=== PATIENT | female | born 1990 | race Caucasian/White ===

== ENCOUNTER 2018-10-20 15:00 | Inpatient (IN) | payer OTHER ==
[2018-10-20] MEDS ORDERED: TUBERCULIN PPD 5 TU/0.1ML SYRINGE (IN PATIENT USE ONLY) ID ONE ×2 (15:39→20:45)
[2018-10-20 15:59] VITALS: BMI 26.0
[2018-10-20] MEDS ORDERED: ELECTROLYTE-148 SOLN 1,000 ML IV SCH (16:00)
[2018-10-20] MEDS ORDERED: BUTORPHANOL TARTRATE 1 MG/ML VIAL ONE ×2 (16:45)
[2018-10-20] MEDS ORDERED: PROMETHAZINE HCL 25 MG/1 ML VIAL ONE (16:45)
[2018-10-20] MEDS ORDERED: PROMETHAZINE HCL 25 MG/1 ML VIAL IVPB ONE (16:50)
[2018-10-20] MEDS ORDERED: BUTORPHANOL TARTRATE 2 MG/ML VIAL IVPB ONE (16:50)
[2018-10-20 17:14] LABS: BASO % 0.4 % (0-2.0); EOS % 0.2 % (0-4.5); HEMATOCRIT 39.9 % (32.4-45.2); HEMOGLOBIN 13.8 GM/dL (10.7-15.3); LYMPH % 8.7 % (8-40); MCH 29.7 pg (25.7-33.7); MCHC 34.5 g/dl (32.0-36.0); MEAN CELL VOLUME 86.2 fl (80-96); MEAN PLT VOLUME 9.4 fl (7.5-11.1); MONO % 3.8 % (3.8-10.2); NEUT % 86.9 % (42.8-82.8); PLATELET COUNT 246 K/MM3 (134-434); RBC 4.63 M/mm3 (3.60-5.2); RDW 13.8 % (11.6-15.6); WHITE BLOOD COUNT 17.6 K/mm3 (4.0-10.0)
[2018-10-20 17:31] LABS: INR 0.86 (0.83-1.09); PROTHROMBIN TIME (PATIENT) 10.1 SEC (9.7-13.0)
[2018-10-20 17:33] LABS: ACTIVATED PTT 29.3 SECONDS (25.2-36.5)
[2018-10-20 17:39] LABS: ANION GAP 10 MMOL/L (8-16); BLOOD UREA NITROGEN 8 mg/dL (7-18); CALCIUM 8.8 mg/dL (8.5-10.1); CHLORIDE 104 mmol/L (98-107); CO2 22 mmol/L (21-32); CREATININE 0.4 mg/dL (0.55-1.3); GLUCOSE,RANDOM 68 mg/dL (74-106); POTASSIUM 3.7 mmol/L (3.5-5.1); SODIUM 136 mmol/L (136-145)
[2018-10-20] MEDS ORDERED: ELECTROLYTE-148 SOLN 1,000 ML IV ONE (19:30)
[2018-10-20] MEDS ORDERED: LIDO 2%/EPI 1:200000 PRESRVFRE (20 ML SDVIAL) ONE (19:44)
[2018-10-20] MEDS ORDERED: BUPIVACAINE HCL/PF 0.25% (2.5MG/ML) 10 ML VIAL ONE (19:44)
[2018-10-20] MEDS ORDERED: FENTANYL/BUPIVACAINE/NS/PF - PCEA - 50 ML DISP.SYRIN EP ONE (19:45)
[2018-10-20] MEDS ORDERED: NALOXONE HCL 0.4 MG/ML VIAL IVPUSH PRN (20:06)
[2018-10-20] MEDS ORDERED: FENTANYL/BUPIVACAINE/NS/PF - PCEA - 50 ML DISP.SYRIN EP SCH (20:15)
--- NOTE | 2018-10-20 21:49 | HP ---
Past Medical History - Primary Care Physician PCP:: Ralph Clarke - Admission Chief Complaint: 28yo P0 with at EGA 39w5d admitted with spontaneous labor since 1pm, and SROM at 6pm. History of Present Illness: Uncomplicated PNC Vaginal GBS negative. History Source: Patient, Medical Record Limitations to Obtaining History: No Limitations - Past Medical History PIANO PLAYER: No: Alzheimer's, CVA, Dementia, Migraine, Multiple Sclerosis, Peripheral Neuropathy, Parkinson's, Seizure, Syncope, TIA, Vertigo, Other Cardiovascular: No: AFIB, Aneurysm, Aortic Insufficiency, Aortic Stenosis, CAD, CHF, Deep Vein Thrombosis, HTN, Hyperlipdemia, [place], Mitral Insufficiency, Mitral Stenosis, Murmur, Pulmonary Hypertension, Other Pulmonary: No: Asthma, Bronchitis, Cancer, COPD, O2 Dependent, Pneumonia, Previously Intubated, Pulmonary Embolus, Pulmonary Fibrosis, Sleep Apnea, Other Gastrointestinal: No: Ascites, Cancer, Constipation, Crohn's Disease, Diverticulitis, Diverticulosis, Esophageal Varices, Gastritis, GERD, GI Bleed, Hemorrhoids, Hiatal Hernia, Inflamatory Bowel Disease, Irritable Bowel Disease, Pancreatitis, Peptic Ulcer Disease, Ulcerative Colitis, Other Hepatobiliary: No: Cirrhosis, Cholelithiasis, Cholecystitis, Choledocholithiasis , Hepatitis A, Hepatitis B, Hepatitis C, Other Renal/: No: Renal Failure, Renal Inusuff, BPH, Cancer, Hematuria, Hemodialysis , Neurogenic Bladder, Renal Calculi, UTI, Other Reproductive: No: Ectopic , Endometriosis, Fibroids, PID, Polycystic Ovary Syndrome, Postmenopausal, Other ...: 1 ...LMP: 01/09/18 ... Weeks Gestation by Dates: 39.5 ...EDC by Dates: 10/16/18 ...EDC by Sono: 10/22/18 Heme/Onc: No: Anemia, B12 Deficiency, Bleeding Disorder, Cancer, Current Chemotherapy, Current Radiation Therapy, Hemochromatosis, Hypercoaguable State, Myeloproliferative Synd, Sickle Cell Disease, Sickle Cell Trait, Thrombocytopenia, Other Infectious Disease: No: AIDS, C-Diff, Herpes Zoster, HIV, MRSA, STD's, Tuberculosis, VREF, Other Psych: No: Addictions, Anxiety, Bipolar, Depression, Panic, Psychosis, Schizophrenia, Other Musculoskeletal: No: Bursitis, Chronic low back pain, Hemiparesis, Hemiplegia, Osteoarthritis, Paraplegia, Other Rheumatology: No: Fibromyalgia, Gout, Lupus, Rheumatoid Arthritis, Sarcoidosis, Vasculitis, Other ENT: No: Allergic Rhinitis, Sinusitis, Other Endocrine: No: [place]'s Disease, Monique's Disease, Diabetes Insipidus, Diabetes Mellitus, Hyperparathyroidism, Hyperthyroidism, Hypothyroidism, Osteopenia, SIADH, Other Dermatology: No: Basal Cell, Cellulitis, Eczema, Melanoma, Psoriasis, Squamous Cell, Other - Past Surgical History Past Surgical History: Yes: None Hx Myomectomy: No Hx Transabdominal Cerclage: No - Smoking History Smoking history: Never smoked - Alcohol/Substance Use Hx Alcohol Use: No - Social History ADL: Independent Occupation: Retail History of Recent Travel: No Home Medications - Allergies Allergies/Adverse Reactions: Allergies Allergy/AdvReac Type Severity Reaction Status Date / Time No Known Allergies Allergy Verified 09/24/18 17:45 - Home Medications Home Medications: Ambulatory Orders Tablet 1 tab PO DAILY 09/24/18 Family Disease History - Family Disease History Family History: Unremarkable Review of Systems - Review of Systems Constitutional: reports: No Symptoms Eyes: reports: No Symptoms HENT: reports: No Symptoms Neck: reports: No Symptoms Cardiovascular: reports: No Symptoms Respiratory: reports: No Symptoms Gastrointestinal: reports: No Symptoms Genitourinary: reports: No Symptoms Breasts: reports: No Symptoms Reported Musculoskeletal: reports: No Symptoms Integumentary: reports: No Symptoms Neurological: reports: No Symptoms Endocrine: reports: No Symptoms Hematology/Lymphatic: reports: No Symptoms Psychiatric: reports: No Symptoms Physical Exam - Maternity Vital Signs: Vital Signs Temperature 98.6 F 10/20/18 18:04 Pulse Rate 103 H 10/20/18 21:00 Respiratory Rate 18 10/20/18 21:00 Blood Pressure 109/68 10/20/18 21:00 O2 Sat by Pulse Oximetry (%) 100 10/20/18 21:00 Constitutional: Yes: Well Nourished, No Distress, Calm Eyes: Yes: WNL, Conjunctiva Clear HENT: Yes: WNL, Atraumatic, Normocephalic Neck: Yes: WNL, Supple, Trachea Midline Cardiovascular: Yes: WNL, Regular Rate and Rhythm Lungs: Clear to auscultation, Normal air movement - Abdominal Exam/OB Fundal Height: 40 Number of Fetuses: Single Presentation: Vertex Contractions: Yes Regularity: Regular (q2-4 min) Intensity: Unaware (s/p epidural) Monitor Mode: External Heart Rate (range): 135 Heart Rate Location: Midline Category: I Accelerations: Non-Uniform Decelerations: None - Vaginal Exam/OB Vaginal Bleediing: No Speculum Exam: No Dilatation (cm): 5 Effacement (%): 80 Amniotic Membrane Status: Ruptured (Forebag ruptured) Amniotic Fluid: Yes: Clear Presentation: Vertex/Position Station: -3 (Adequate gynecoid pelvimetry, EFW ~3600 grams by Odin maneuvers) - Physical Exam Musculoskeletal: Yes: WNL Extremities: Yes: WNL Edema: No Integumentary: Yes: WNL Deep Tendon Reflex Grade: Normal +2 ...Motor Strength: WNL Psychiatric: Yes: WNL, Alert, Oriented - Labs Lab Results: CBC, BMP 10/20/18 16:50 10/20/18 16:50 Hemorrhage Risk Assessment - Risk Factors Medium Risk Factors: Yes: None High Risk Factors: Yes: None Risk Score: 1 Risk Level: Medium Risk Imaging - Results Ultrasound: Report Reviewed Assessment/Plan 28yo P0 with at EGA 39w5d admitted with spontaneous labor since 1pm, and SROM at 6pm. Pt did not progress from the last exam and has arrest of dilation. The contractions are 2-4min apart and are of moderate strength. Plan to augment contractions with pitocin. Plan of care d/w pt and she agreed. pt declined a c/s. Risks, benefits, alternatives of pitocin d/w pt.
[2018-10-20] MEDS ORDERED: OXYTOCIN 30 UNITS in 0.9% NS 30 UNIT/500 ML INFUS.BAG IVPB ONE (21:57)
[2018-10-20] MEDS ORDERED: OXYTOCIN 30 UNITS in 0.9% NS 30 UNIT/500 ML INFUS.BAG IVPB SCH (22:15)
[2018-10-21] MEDS ORDERED: ELECTROLYTE-148 SOLN 1,000 ML IV ONE (00:15)
[2018-10-21] MEDS ORDERED: FENTANYL/BUPIVACAINE/NS/PF - PCEA - 50 ML DISP.SYRIN EP ONE ×2 (00:32→05:37)
--- NOTE | 2018-10-21 05:48 | PN ---
Ante-Partal Exam - Subjective Subjective: No complaints. Epidural is in place. The pt was checked by RN several times and the pt has been diagnosed with arrest of dilation at 5-6cm. Vital Signs: Vital Signs Temperature 98.9 F 10/21/18 05:00 Pulse Rate 90 10/21/18 04:15 Respiratory Rate 18 10/21/18 04:15 Blood Pressure 126/72 10/21/18 04:15 O2 Sat by Pulse Oximetry (%) 100 10/21/18 04:15 Bleeding: No Headache: No Visual changes: No Right upper quadrant pain: No Pain (scale 1-10): 0 - Contractions Contractions: Yes Intensity: Strong Monitor Mode: External - Exam during Labor Heart Rate: 120 Variability: Moderate Heart Rate Location: Midline Category: I Monitor Accelerations: Present Monitor Decelerations: None Exam: Vaginal Dilatation (cm): 5 Effacement (%): 70 Amniotic Membrane Status: Leaking Nitrazine Test: Positive Amniotic Fluid: Clear Presentation: Vertex Station: -2 - Intrapartum Hemorrhage Risk Medium Risk Factors: None High Risk Factors: None Risk Score: 0 Risk Level: Low Risk - Assessment/Plan Assessment/Plan: The pt was checked by RN several times and the pt has been diagnosed with arrest of dilation at 5-6cm. The pt was offered delivery. The fetus with Category I tracing. We discussed the risks and benefits of C/S at length, including but not limited to scarring, pain, bleeding, infection, injury to underlying organs and structures, need for additional surgery to repair/treat any problems or complications, complications/injuries, etc. The pt verbalized her understanding and requested to proceed with surgery. The pt is aware that all surgeries have risks and no guarantees can be provided.
[2018-10-21] MEDS ORDERED: CITRIC ACID/SODIUM CITRATE 30 ML UNIT-DOSE CUP PO ONE (06:15)
[2018-10-21] MEDS ORDERED: LIDO 2%/EPI 1:200000 PRESRVFRE (20 ML SDVIAL) ONE (06:51)
[2018-10-21] MEDS ORDERED: OXYTOCIN 20 UNITS in 0.9% NS 20 UNIT/1,000 ML INFUS.BAG IV ONE ×2 (07:01→09:16)
[2018-10-21] MEDS ORDERED: ceFAZolin SODIUM 1 GM VIAL ONE (07:08)
[2018-10-21] MEDS ORDERED: DEXAMETHASONE SOD PHOSPHATE 4 MG/1 ML VIAL ONE (07:38)
[2018-10-21] MEDS ORDERED: ePHEDrine SULFATE 50 MG/1 ML AMPULE ONE (07:57)
[2018-10-21] MEDS ORDERED: SUCCINYLCHOLINE CHLORIDE 200 MG/10 ML VIAL ONE (07:57)
--- NOTE | 2018-10-21 08:05 | OP ---
Operative Note - Note: Operative Date: 10/21/18 Pre-Operative Diagnosis: at [id number]. Arrest of dilation Operation: Primary LT C/S Findings: Live baby boy in vtx presentation, clear amniotic fluid, 9/9, normal uterus/tubes/ovaries Post-Operative Diagnosis: Same as Pre-op Surgeon: Ralph Clarke Pulpwood Cutter: Alanna Leavitt Anesthesiologist/PRODUCT TEST SPECIALIST: Michael Ruggiero Anesthesia: Epidural Specimens Removed: Placenta Estimated Blood Loss (mls): 600 Drains & Tubes with Location: Mendoza Catheter Drains, Volume Out (mls): 300 Blood Volume Replaced (mls): 0 Fluid Volume Replaced (mls): 800 Operative Report Dictated: Yes
--- NOTE | 2018-10-21 08:13 | PN ---
Delivery - Delivery Section: Primary, Low Flap Transverse Type of Anesthesia: Epidural Episiotomy/Laceration: None EBL (cc): 600 Delivery, Single - Stages of Labor Date 1st Stage Initiatied: 10/20/18 Time 1st Stage Initiated: 16:00 Date of Delivery: 10/21/18 Time of Delivery: 07:18 Date Placenta Delivered: 10/21/18 Time Placenta Delivered: 07:19 Placenta: Yes: Manual Removal, Normal Configuration - Condition of Slip Laster/Able Bodied Watchman Present: Yes Name: My Hawkins Infant Gender: Male Weight: 3.487 kg Position: Left, OT Total Hours ROM (Hrs/Mins): 13h19m - 1 Minute Total Score: 9 5 Minutes Total Score: 9 - Feeding Plan Initial Plan: Exclusive throughout hospitalization Benefits of Exclusively reinforced: Yes Remarks - Remarks Remarks: Primary LT C/S for arrest of dilation at 5-6cm. Uncomplicated surgery.
[2018-10-21] MEDS ORDERED: WITCH HAZEL 50% (TUCKS) 40 PAD/JAR PAD TP PRN (08:28)
[2018-10-21] MEDS ORDERED: METHYLERGONOVINE MALEATE 0.2 MG/1 ML AMP IM PRN (08:28)
[2018-10-21] MEDS ORDERED: oxyCODONE HCL 5 MG TABLET PO PRN (08:28)
[2018-10-21] MEDS ORDERED: BENZOCAINE 20% 57 GM BOTTLE TP PRN (08:28)
[2018-10-21] MEDS: OXYTOCIN 20 UNITS in 0.9% NS 20 UNIT/1,000 ML INFUS.BAG IV SCH (09:18)
[2018-10-21] MEDS: IBUPROFEN 800 MG/8 ML IJ IVPB PRN (09:21)
[2018-10-21] MEDS ORDERED: IBUPROFEN 800 MG/8 ML IJ IVPB ONE (09:24)
[2018-10-21] MEDS: ENOXAPARIN NA (PORCINE) 40 MG/0.4 ML DISP.SYRIN SQ SCH (11:08)
[2018-10-21] MEDS: PRENATAL VITAMINS W/ FOLIC ACID TABLET (FP) PO SCH (11:09)
--- NOTE | 2018-10-21 11:37 | OP ---
DATE OF OPERATION: 10/21/2018 PREOPERATIVE DIAGNOSES: at the estimated gestational age of 39 weeks and 6 days. Arrest of dilation at 5-6 cm. POSTOPERATIVE DIAGNOSES: at the estimated gestational age of 39 weeks and 6 days. Arrest of dilation at 5-6 cm. PROCEDURE: Primary low transverse section via Pfannenstiel skin incision. SURGEON: Ralph Clarke MD PIPELINES LABORER: Alanna Leavitt MD ANESTHESIOLOGIST: Michael Ruggiero MD ANESTHESIA: Epidural. FINDINGS: Live baby boy in vertex presentation. Clear amniotic fluid. Normal uterus, fallopian tubes, and ovaries. Apgars 9 and 9. INTRAVENOUS FLUIDS: 800 mL ESTIMATED BLOOD LOSS: 600 mL ESTIMATED URINE OUTPUT: 300 mL of clear urine at the end of the procedure. PATHOLOGY: Placenta. COMPLICATIONS: None. PROCEDURE: Patient was met preoperatively. Risks, benefits, and alternatives of surgery were discussed in detail. All questions were answered. The consent form was reviewed. The patient asked appropriate questions and verbalized her understanding. The consent form was signed. The patient was then brought to the OR with the IV running. She was placed on the surgical table in the supine position with a leftward tilt. The epidural anesthesia was bolused and an adequate level was achieved. The patient was then prepped and draped in the usual sterile fashion. A Mendoza catheter was left to drain to gravity. A timeout procedure was conducted as per standard protocol. The surgeons then proceeded with the section. A Pfannenstiel skin incision was made approximately 2 cm above the pubic symphysis. The skin incision was then carried down to the level of fascia. The fascia was incised in the midline and the incision was extended bilaterally using Tejada scissors. The fascia was then dissected away from the rectus muscles superiorly and inferiorly using blunt and sharp dissection. The peritoneum was identified and entered sharply. The peritoneal incision was extended superiorly and inferiorly using Metzenbaum scissors. The bladder peritoneum was then dissected away from the lower uterine segment using sharp dissection. The bladder was reflected downwards using a Evelyn retractor. The lower uterine segment was incised transversely and the incision was extended bilaterally using bandage scissors. The baby was delivered from vertex presentation without complications. The baby's nose and mouth were suctioned with the bulb suction. The baby was crying spontaneously. The shoulders and body were delivered without complication. The umbilical cord was clamped and cut and the baby was handed to the awaiting dog pound attendant. The placenta was then expressed manually without complications. The uterus was cleared of all clots and debris using laparotomy laps. The uterine incision was then repaired using a 0 Biosyn suture with a running locking stitch. Good hemostasis was noted. The uterine incision was then imbricated using a 0 Biosyn suture with good hemostasis and approximation. The bladder peritoneum was also approximated using a 0 Biosyn suture. The operative site was irrigated using copious amounts of normal saline. Once the saline was aspirated, good hemostasis was confirmed. The abdominal peritoneum was closed using a 2-0 chromic suture. The rectus muscles were approximated using several interrupted 2-0 chromic sutures. The fascia was closed with a 0 Vicryl suture in a running stitch. The Carlos fascia and adipose tissues were approximated to eliminate space underneath the skin. The skin was closed using a 3-0 Vicryl suture using a subcutaneous stitch. The patient tolerated procedure well. Sponge, lap, and instrument counts were correct. The patient was then transferred to the recovery room in stable condition and awake. Janet [id number]
[2018-10-22] MEDS: IBUPROFEN 800 MG/8 ML IJ IVPB PRN (05:00)
[2018-10-22 08:25] LABS: BASO % 0.2 % (0-2.0); EOS % 0.8 % (0-4.5); HEMATOCRIT 29.1 % (32.4-45.2); LYMPH % 13.5 % (8-40); MCH 29.7 pg (25.7-33.7); MCHC 34.2 g/dl (32.0-36.0); MEAN CELL VOLUME 86.9 fl (80-96); MEAN PLT VOLUME 9.4 fl (7.5-11.1); MONO % 4.6 % (3.8-10.2); NEUT % 80.9 % (42.8-82.8); PLATELET COUNT 176 K/MM3 (134-434); RBC 3.35 M/mm3 (3.60-5.2); RDW 14.3 % (11.6-15.6); WHITE BLOOD COUNT 19.3 K/mm3 (4.0-10.0)
[2018-10-22] MEDS ORDERED: BISACODYL 10 MG SUPP.RECT RC PRN (08:28)
[2018-10-22] MEDS: OXYTOCIN 20 UNITS in 0.9% NS 20 UNIT/1,000 ML INFUS.BAG IV SCH (08:30)
--- NOTE | 2018-10-22 08:43 | PN ---
Post Progress Note - Subjective Subjective: Patient without acute complaints. Tolerating clears, without complaints of nausea or vomiting. No ambulation yet. Denies fevers or chills. without difficulty Pain well controlled Mendoza removed this AM, no voiding yet. Denies flatus. Post Day: 1 Type of Delivery: Primary C/S Vital Signs: Vital Signs Temperature 97.8 F 10/22/18 08:00 Pulse Rate 67 10/22/18 08:00 Respiratory Rate 18 10/22/18 08:00 Blood Pressure 84/42 L 10/22/18 08:00 O2 Sat by Pulse Oximetry (%) 100 10/21/18 08:55 Breast Exam: Yes: Soft Uterus: Yes: Fundus Firm Incision: Yes: Dressing dry and intact Abdomen/GI: Yes: Abdomen soft, Abdominal Distention (mild soft), Passing flatus , Tolerating PO Lochia: Yes: Serosa Lochia, amount: Small Extremities: Yes: Calves non-tender. No: Edema Activity: Ambulating - Labs Labs: CBC WBC 17.6 K/mm3 (4.0-10.0) H 10/20/18 16:50 RBC 4.63 M/mm3 (3.60-5.2) 10/20/18 16:50 Hgb 13.8 GM/dL (10.7-15.3) 10/20/18 16:50 Hct 39.9 % (32.4-45.2) 10/20/18 16:50 MCV 86.2 fl (80-96) 10/20/18 16:50 MCH 29.7 pg (25.7-33.7) 10/20/18 16:50 MCHC 34.5 g/dl (32.0-36.0) 10/20/18 16:50 RDW 13.8 % (11.6-15.6) 10/20/18 16:50 Plt Count 246 K/MM3 (134-434) 10/20/18 16:50 MPV 9.4 fl (7.5-11.1) 10/20/18 16:50 Absolute Neuts (auto) 15.3 K/mm3 (1.5-8.0) H 10/20/18 16:50 Neutrophils % 86.9 % (42.8-82.8) H 10/20/18 16:50 Lymphocytes % 8.7 % (8-40) 10/20/18 16:50 Monocytes % 3.8 % (3.8-10.2) 10/20/18 16:50 Eosinophils % 0.2 % (0-4.5) 10/20/18 16:50 Basophils % 0.4 % (0-2.0) 10/20/18 16:50 Nucleated RBC % 0 % (0-0) 10/20/18 16:50 Assessment/Plan 28 yo POD #1 s/p CD, afebrile, vital signs stable, doing well 1. Continue routine postoperative care. 2. Follow up AM CBC 3. Rh positive status, no rhogam indicated. 4. Encourage ambulation and incentive spirometer use 5. Continue oral pain medication 6. Anticipate discharge home postoperative day #3 or #4
[2018-10-22] MEDS: PRENATAL VITAMINS W/ FOLIC ACID TABLET (FP) PO SCH (09:27)
[2018-10-22] MEDS: ENOXAPARIN NA (PORCINE) 40 MG/0.4 ML DISP.SYRIN SQ SCH (09:30)
[2018-10-22] MEDS: IBUPROFEN 600 MG TABLET (FP) PO PRN (18:25)
[2018-10-22] MEDS: SIMETHICONE 80 MG TAB.CHEW (FP) PO PRN (18:26)
[2018-10-22] MEDS ORDERED: oxyCODONE HCL 5 MG TABLET PO PRN ×2 (20:59→21:00)
[2018-10-23] MEDS: IBUPROFEN 600 MG TABLET (FP) PO PRN ×3 (06:56→23:58)
[2018-10-23] MEDS: SIMETHICONE 80 MG TAB.CHEW (FP) PO PRN ×3 (06:56→23:59)
[2018-10-23] MEDS: ACETAMINOPHEN 325 MG TABLET (FP) PO PRN ×3 (06:56→23:59)
--- NOTE | 2018-10-23 07:42 | PN ---
Progress Note (short form) - Note Progress Note: pod 2 ,no c/o voids ok, passing gas CBC, BMP 10/22/18 07:30 10/20/18 16:50 Last Vital Signs Temp Pulse Resp BP Pulse Ox 97.9 F 82 18 102/56 L 100 10/22/18 22:00 10/22/18 22:00 10/22/18 22:00 10/22/18 22:00 10/21/18 08:55 abdomen soft, no distension, no cva incision dry, clean no calf tenderness plan ambulate , advance diet , cbc in am pain management
[2018-10-23] MEDS: PRENATAL VITAMINS W/ FOLIC ACID TABLET (FP) PO SCH (09:09)
[2018-10-23] MEDS: ENOXAPARIN NA (PORCINE) 40 MG/0.4 ML DISP.SYRIN SQ SCH (09:09)
--- NOTE | 2018-10-24 07:04 | PN ---
Post Progress Note - Subjective Subjective: No complains pain well controled voiding had BM eating regular diet Post Day: 3 Type of Delivery: Primary C/S Vital Signs: Vital Signs Temperature 98.1 F 10/23/18 22:00 Pulse Rate 88 10/23/18 22:00 Respiratory Rate 18 10/23/18 22:00 Blood Pressure 102/64 10/23/18 22:00 O2 Sat by Pulse Oximetry (%) 100 10/21/18 08:55 Breast Exam: Yes: Soft Uterus: Yes: Fundus Firm. No: Fundus above umbilicus, Fundus @ umbilicus, Fundus below umbilicus, Non-tender, Other Incision: Yes: Sutures intact Abdomen/GI: Yes: Abdomen soft Lochia: Yes: Rubra Lochia, amount: Small Extremities: Yes: Calves non-tender Perineum: Yes: Intact Activity: Ambulating - Labs Labs: CBC WBC 19.3 K/mm3 (4.0-10.0) H 10/22/18 07:30 RBC 3.35 M/mm3 (3.60-5.2) L 10/22/18 07:30 Hgb 10.0 GM/dL (10.7-15.3) L 10/22/18 07:30 Hct 29.1 % (32.4-45.2) L D 10/22/18 07:30 MCV 86.9 fl (80-96) 10/22/18 07:30 MCH 29.7 pg (25.7-33.7) 10/22/18 07:30 MCHC 34.2 g/dl (32.0-36.0) 10/22/18 07:30 RDW 14.3 % (11.6-15.6) 10/22/18 07:30 Plt Count 176 K/MM3 (134-434) D 10/22/18 07:30 MPV 9.4 fl (7.5-11.1) 10/22/18 07:30 Absolute Neuts (auto) 15.6 K/mm3 (1.5-8.0) H 10/22/18 07:30 Neutrophils % 80.9 % (42.8-82.8) 10/22/18 07:30 Lymphocytes % 13.5 % (8-40) D 10/22/18 07:30 Monocytes % 4.6 % (3.8-10.2) 10/22/18 07:30 Eosinophils % 0.8 % (0-4.5) D 10/22/18 07:30 Basophils % 0.2 % (0-2.0) 10/22/18 07:30 Nucleated RBC % 0 % (0-0) 10/22/18 07:30 Assessment/Plan 28yo P1 s/p 1' c/section VSS, Afebrile repeat WBS if downward trend d/c home NPV for 6wks RTO 1 wk
[2018-10-24 09:00] VITALS: BP 106/61; PULSE 71; TEMP 97.6
[2018-10-24] MEDS: PRENATAL VITAMINS W/ FOLIC ACID TABLET (FP) PO SCH (09:55)
[2018-10-24] MEDS: ENOXAPARIN NA (PORCINE) 40 MG/0.4 ML DISP.SYRIN SQ SCH (09:55)
[2018-10-24] MEDS: ACETAMINOPHEN 325 MG TABLET (FP) PO PRN (10:01)
[2018-10-24] MEDS: SIMETHICONE 80 MG TAB.CHEW (FP) PO PRN (10:01)
[2018-10-24] MEDS: IBUPROFEN 600 MG TABLET (FP) PO PRN (10:02)
[2018-10-24 10:28] LABS: BASO % 0.5 % (0-2.0); EOS % 2.6 % (0-4.5); HEMATOCRIT 34.3 % (32.4-45.2); HEMOGLOBIN 11.7 GM/dL (10.7-15.3); MCH 29.6 pg (25.7-33.7); MCHC 34.1 g/dl (32.0-36.0); MEAN CELL VOLUME 86.9 fl (80-96); MEAN PLT VOLUME 8.9 fl (7.5-11.1); MONO % 3.2 % (3.8-10.2); NEUT % 70.7 % (42.8-82.8); PLATELET COUNT 292 K/MM3 (134-434); RBC 3.95 M/mm3 (3.60-5.2); RDW 13.8 % (11.6-15.6); WHITE BLOOD COUNT 9.3 K/mm3 (4.0-10.0)
--- NOTE | 2018-10-24 11:52 | DS ---
Physical Exam-CONCILIATION COURT JUDGE Vital Signs: Vital Signs Temperature 97.6 F 10/24/18 08:57 Pulse Rate 71 10/24/18 08:57 Respiratory Rate 20 10/24/18 08:57 Blood Pressure 106/61 10/24/18 08:57 O2 Sat by Pulse Oximetry (%) 100 10/21/18 08:55 Constitutional: Yes: Well Nourished, No Distress, Calm Eyes: Yes: WNL HENT: Yes: WNL Neck: Yes: WNL, Supple, Trachea Midline Cardiovascular: Yes: WNL, Regular Rate and Rhythm Respiratory: Yes: WNL, Regular, CTA Bilaterally Gastrointestinal: Yes: WNL, Normal Bowel Sounds Renal/: Yes: WNL External Genitalia: Yes: Normal Vaginal Exam: Yes: Normal ....Post : Yes: Uterus firm, Uterus non-tender Breast(s): Yes: WNL Musculoskeletal: Yes: WNL Extremities: Yes: WNL Wound/Incision: Yes: Clean/Dry, Well Approximated Neurological: Yes: WNL, Alert, Oriented ...Motor Strength: WNL Psychiatric: Yes: WNL, Alert, Oriented Labs: CBC, BMP 10/24/18 08:10 10/20/18 16:50 Delivery - Delivery Section: Primary, Low Flap Transverse Type of Anesthesia: Epidural Episiotomy/Laceration: None EBL (cc): 600 Delivery, Single - Stages of Labor Date 1st Stage Initiatied: 10/20/18 Time 1st Stage Initiated: 16:00 Date of Delivery: 10/21/18 Time of Delivery: 07:18 Time Placenta Delivered: 07:19 Placenta: Yes: Manual Removal, Normal Configuration - Condition of Infant Materials And Corrosion Engineer/Tool Machinist Present: Yes Name: My Hawkins Infant Gender: Male Weight: 7 lb 11 oz Position: Left, OT Total Hours ROM (Hrs/Mins): 13h19m - 1 Minute Total Score: 9 5 Minutes Total Score: 9 - [place] Feeding Plan Initial Plan: Exclusive throughout hospitalization Benefits of Exclusively reinforced: Yes Discharge Summary Reason For Visit: LABOR Procedures: Principal: c/section Other Procedures: circumcision - Instructions Diet, Activity, Other Instructions: Physical activity Resume your normal everyday activity as tolerated no heavy lifting or exercise until seen by your surgeon. You may walk unlimited jeniffer of and climb stairs. You may resume driving the car when you feel safe and comfortable behind the wheel. No sexual activity as instructed. Wound care If you have a bandage, leave it on, and keep dry for 48-72 hours. After that time discard the outer bandage. If they are tapes on the skin under the out of bandage leave them in place. They will peel off in the next 7 to 10 days. Do Not Peel them off. You may shower the day after surgery. If there are tapes present on the skin, you may shower over them. Diet There are no dietary restrictions. Eat healthy, high-fiber foods. Drink 6 to 8 glasses of liquid each day. This will assist in keeping your bowels are regular. Pain management You may take Tylenol or acetaminophen or Ibuprofen (for example, Motrin, Advil etc.) from my pain prescription medication is ordered should be taken as prescribed for moderate to severe pain. Call MD for any of the following: Severe pain not relieved by medication Fever of 101 or higher Excessive bleeding or drainage on dressing Inability to urinate Disposition: HOME - Home Medications Comprehensive Discharge Medication List: Ambulatory Orders Tablet 1 tab PO DAILY 09/24/18
--- NOTE | 2018-10-29 16:47 | PATH ---
Surgical Pathology Report Patient Name: NOREEN CHAMBERS [facility]. Rec. #: [id number] /Age/Gender: 1990 (Age: 28) / F Account: [id number] Location: [facility] OBS/LEAD PAINTER Taken: 10/21/2018 Received: 10/21/2018 Reported: 10/29/2018 Physicians: Ralph Clarke M.D. Specimen(s) Received PLACENTA Clinical History , 39.5 weeks gestation, history of ovarian cyst, polycythemia Final Diagnosis PLACENTA, SECTION: 489 G THIRD TRIMESTER PLACENTA WITH TRIVASCULAR UMBILICAL CORD, MODERATE ACUTE UMBILICAL ARTERITIS, FOCAL FUNISITIS, AND MODERATE ACUTE CHORIOAMNIONITIS. Electronically Signed Christiane Soriano M.D. Gross Description The specimen is received fresh labeled placenta and is a 489 gram, 18.0 x 14.5 x 2.7 cm. placenta with attached membranes and umbilical cord. The attached membranes are torres, translucent with focal opacities and insert marginally. The umbilical cord measures 28 cm. in length and averages 1.3 cm. in diameter. The cord inserts centrally. No true knots or strictures are identified. Cut surface of the umbilical cord reveals 3 vessels. The surface is mahajan-blue with minimal fibrin deposition and appropriate caliber vessels. The maternal surface is red-brown with focal defects. Sectioning reveals red-brown, spongy parenchyma. No lesions are identified. Medical Imaging Technologist sections are submitted in three cassettes as follows: 1- membrane rolls and umbilical cord; 2-3- full thickness sections of placenta. 10/28/2018 [facility]10/28/2018
== END 2018-10-24 17:00 | disposition home or self-care (01) | DRG 540 ==
LOC: JLDR 15:00 → J3W 10-21 10:00
PROVIDERS: ADMIT Obstetrics & Gynecology; ATTEND Obstetrics & Gynecology
PROC: 10D00Z1 Extraction of Products of Conception, Low, Open Approach (ICD-10-PCS; principal; 2018-10-21)
DX: O62.1 Secondary uterine inertia (principal); Z3A.39 39 weeks gestation of pregnancy; Z37.0 Single live birth
CPT/HCPCS: 36415; 80048; 85025; 85610; 85730; 86593; 86850; 86900; 86901; 87389; 88307-TC